=== PATIENT | female | born 1955 ===

== ENCOUNTER 2023-05-31 07:32 | Outpatient (CLI) | payer OTHER | END 2023-05-31 07:50 | disposition home or self-care (01) | LOC: SONOGRAMA 07:32 | PROVIDERS: ATTEND Specialist | DX: K82.4 Cholesterolosis of gallbladder (principal) ==

== ENCOUNTER 2023-07-26 05:00 | Day surgery (SDC) | payer OTHER ==
[2023-07-13 08:34] LABS: HEMATOCRIT 45.7 % (36.0-45.00); HEMOGLOBIN 15.3 g/dL (12.0-15.00); MEAN CELL VOLUME 87.2 fL (80.00-100.00); MEAN CORPUSCULAR HEMOGLOBIN 29.2 pg (27.00-32.0); MEAN CORPUSCULAR HGB CONC 33.4 g/dl (32.0-36.0); PH,URINE 5.5 (5.0-8.0); PLATELET COUNT 199 K/uL (150-450); RED BLOOD COUNT 5.24 M/uL (4.00-6.00); URINE APPEARANCE Clear; URINE BILIRRUBIN Negative (NEGATIVE); URINE BLOOD Negative; URINE COLOR Yellow; URINE GLUCOSE Negative (NEGATIVE); URINE LEUKOCYTE Negative; URINE NITRATE Negative; URINE PROTEIN Negative (NEGATIVE); URINE UROBILINOGEN 0.2 E.U./dl
[2023-07-13 08:38] LABS: URINE BACTERIA 26.4 uL (0.0-1933); URINE EPITHELIAL CELLS 3.2 uL (0.0-38.8); URINE RBC 4.3 uL (0.0-20.8); URINE WBC 8.7 uL (0.0-23.2)
[2023-07-13 09:01] LABS: PARTIAL THROMBOPLASTIN TIME 27.1 SECONDS (22.0-34.0); PROTHROMBIN TIME 10.5 SECONDS (9.0-11.5)
[2023-07-13 09:05] LABS: ALBUMIN 4.1 gm/dL (3.4-5.0); BILIRUBIN TOTAL 0.85 mg/dL (0.3-1.2); CALCIUM 9.7 mg/dL (8.5-10.1); CREATININE SERUM 0.58 mg/dL (0.55-1.02); GFR 103.69; GLOBULINA 2.9 G/DL (2.4-3.5); POTASSIUM 4.13 mEq/L (3.5-5.1)
[~2023-07-26 05:00] MED LIST: ALLEGRA ALLERG180 MG PO; LIPITOR20 MG PO; PEPCID AC20 MG PO
[2023-07-26] MEDS ORDERED: CEFAZOLIN SODIUM 1,000 MG VIAL ONE ×2 (07:06→09:30)
[2023-07-26] MEDS ORDERED: CEFAZOLIN SODIUM 1,000 MG VIAL IV ONE (08:15)
[2023-07-26] MEDS ORDERED: BUPIVACAINE HCL/PF 0.5% 30ML ML ONE (08:38)
[2023-07-26] MEDS ORDERED: BUPIVACAINE HCL 30 ML VIAL IJ ONE (08:45)
[2023-07-26] MEDS ORDERED: CEFAZOLIN SODIUM 1,000 MG VIAL IV SCH (09:30)
[2023-07-26] MEDS ORDERED: FAMOTIDINE/PF 20 MG/2 ML VIAL ONE (09:30)
[2023-07-26] MEDS ORDERED: FAMOTIDINE/PF 20 MG/2 ML VIAL IV SCH (09:30)
== END 2023-07-26 11:25 | disposition home or self-care (01) ==
LOC: CIR.AMB 05:00 → O/R 05:00 → SURH 05:00 → EDSTATUS 07:00 → SURH 07:00 → O/R 11:25 → CIR.AMB 11:25
PROVIDERS: ATTEND Specialist
DX: K80.10 Calculus of gallbladder with chronic cholecystitis without obstruction (principal)